=== PATIENT | male | born 2000 | race Caucasian/White ===

== ENCOUNTER 2020-07-05 11:59 | Emergency (ER) | payer OTHER ==
[~2020-07-05] VITALS: Ht 193 cm; Wt 101.2 kg
[2020-07-05 12:00] VITALS: BP 153/86
== END 2020-07-05 13:34 | disposition home or self-care (01) ==
LOC: M ED 11:59
DX: M79.10 Myalgia, unspecified site (principal); R05 Cough; R51.9 Headache, unspecified; F17.200 Nicotine dependence, unspecified, uncomplicated
CPT/HCPCS: 87880; 99283; U0003

== ENCOUNTER → 2022-04-12 | Outpatient (REF) | payer OTHER ==
[2022-04-12 12:25] LABS: SEMEN APPEARANCE OPAQUE (OPAQUE); SEMEN VISCOSITY LIQUID (LIQUID); SEMEN VOLUME 6.5 ml (2.0-5.0)
[2022-04-12 12:26] LABS: SPERM CONCENTRATION 21.4 M/ml (>=15.0); WBC CONCENTRATION >1 M/ml (<=1 M/ml)
== END ==
LOC: M LAB REF 11:36
PROVIDERS: ATTEND Physician Assistant
DX: Z31.41 Encounter for fertility testing (principal)

== ENCOUNTER → 2022-07-07 | Outpatient (REF) | payer OTHER ==
[2022-07-07 17:31] LABS: SEMEN APPEARANCE OPAQUE (OPAQUE); SEMEN VISCOSITY LIQUID (LIQUID); SEMEN VOLUME 5.8 ML (2.0-5.0); SEMEN WBC <=1 M/ml (<=1 M/ml)
== END ==
LOC: M LAB REF 17:20
PROVIDERS: ATTEND Obstetrics & Gynecology Obstetrics
DX: Z31.41 Encounter for fertility testing (principal)